=== PATIENT | female | born 1985 | race Caucasian/White ===

== ENCOUNTER 2017-12-08 15:37 | Emergency (ER) | payer MEDICAID ==
[~2017-12-08] VITALS: Ht 170.2 cm; Wt 118.2 kg
[2017-12-08 17:00] VITALS: BP 122/74
== END 2017-12-08 17:19 | disposition home or self-care (01) ==
LOC: EMS 15:38
DX: L23.9 Allergic contact dermatitis, unspecified cause (principal)
CPT/HCPCS: 99281